=== PATIENT | female | born 1985 | race Caucasian/White ===

== ENCOUNTER 2023-03-21 09:11 | Outpatient (CLI) | payer OTHER, SELFPAY ==
[2023-03-21 10:13] LABS: Beta HCG Quantitative < 2.39 mIU/ML
== END 2023-03-21 09:12 | disposition home or self-care (01) ==
PROVIDERS: PCP Family Medicine; Visit Provider Student in an Organized Health Care Education/Training Program
DX: Z11.3 Encounter for screening for infections with a predominantly sexual mode of transmission (principal); Z30.9 Encounter for contraceptive management, unspecified
CPT/HCPCS: 36415; 84702; 86695; 86696

== ENCOUNTER 2023-03-28 11:26 | Outpatient (CLI) | payer OTHER, SELFPAY ==
[2023-03-28 12:08] LABS: Beta HCG Quantitative < 2.39 mIU/ML
== END 2023-03-28 11:27 | disposition home or self-care (01) ==
LOC: ANHLAB 11:27
PROVIDERS: PCP Family Medicine; Visit Provider Student in an Organized Health Care Education/Training Program
DX: N92.6 Irregular menstruation, unspecified (principal)
CPT/HCPCS: 36415; 84702